=== PATIENT | female | born 1985 | race African-American/Black ===

== ENCOUNTER 2020-01-05 02:40 | Observation (INO) | payer OTHER ==
[2020-01-05 03:33] VITALS: BMI 31.9
[2020-01-05 03:41] VITALS: BP 118/61; PULSE 61; TEMP 97.8
== END 2020-01-05 03:51 | disposition home or self-care (01) ==
LOC: JLDR 02:40
PROVIDERS: ADMIT Obstetrics & Gynecology; ATTEND Obstetrics & Gynecology
DX: O60.00 Preterm labor without delivery, unspecified trimester (principal)
CPT/HCPCS: 59025; G0378